=== PATIENT | male | born 1960 | race Two or more races ===

== ENCOUNTER 2019-03-20 21:13 | Emergency (ER) | payer OTHER ==
[~2019-03-20] VITALS: Ht 170.2 cm; Wt 120.2 kg
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
[2019-03-20 21:45] VITALS: BP 142/89
[2019-03-20] MEDS ORDERED: HYDROcodone/Acetamin 5/325 tab ORAL ONE (22:15)
[2019-03-20] MEDS ORDERED: IBUPROFEN600 MG ORAL (22:42)
[2019-03-20] MEDS ORDERED: HYDROCODON-ACE1 EA15 ORAL (22:42)
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
[2019-03-20 22:50] VITALS: BP 145/88
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
--- NOTE | 2019-03-21 12:20 | Diagnostic Imaging Report ---
Indication: left ankle pain Comparison: None Findings: 3 views of the left ankle obtained. Soft tissues are unremarkable. Tibiotalar osteophytes noted. No acute fracture, malalignment, periostitis, or osteochondral defects are identified. Impression: No acute findings
--- NOTE | 2019-03-21 12:28 | Diagnostic Imaging Report ---
Indication: Chest pain Comparison: None A single view chest radiograph was obtained. Findings: Pulmonary vascular prominence demonstrated with cardiomegaly. This is seen in the setting of low lung volumes. Bones are unremarkable. IMPRESSION: Query mild CHF. Correlate clinically
== END 2019-03-20 22:50 | disposition home or self-care (01) ==
LOC: EMR 22:50
DX: S20.212A Contusion of left front wall of thorax, initial encounter (principal); S93.402A Sprain of unspecified ligament of left ankle, initial encounter; E11.9 Type 2 diabetes mellitus without complications; Z88.0 Allergy status to penicillin; I10 Essential (primary) hypertension; V03.90XA Pedestrian on foot injured in collision with car, pick-up truck or van, unspecified whether traffic or nontraffic accident, initial encounter; Y92.9 Unspecified place or not applicable
CPT/HCPCS: 71045; 93005; 99284